=== PATIENT | female | born 1985 | race Caucasian/White ===

== ENCOUNTER → 2024-01-30 14:59 | Outpatient (CLI) | payer OTHER, MEDICAID, SELFPAY ==
--- NOTE | 2024-01-30 | DI.US.S_ITS ---
PROCEDURE: US THYROID INDICATIONS: THYROID NODULE FOLLOW UP TECHNIQUE: Real-time scanning was performed of the thyroid gland, with image documentation. COMPARISON: [facility], CT, CT SINUS [employer] NAVIGATION, 11/26/2023, 11:50. FINDINGS: Thyroid: Right lobe measures 6.5 x 2.2 x 1.6 cm. Left lobe measures 5.4 x 1.9 x 1.3 cm. Isthmus is 0.4 cm thick. Echotexture is homogeneous. Nodule number: 1 Location: Right inferior Size: 2.3 x 1.8 x 1.4 cm. Composition: Solid Echogenicity: Isoechoic Shape: wider than tall. Margins: Smooth Echogenic foci: None Total points: 3 ACR TI-RADS category: TR 3, mildly suspicious 2 additional subcentimeter thyroid nodules are seen. IMPRESSION: Right inferior thyroid nodule measuring 2.3 cm. TR 3, mildly suspicious. Recommend follow-up thyroid ultrasound in 1 year. ACR TI-RADS definitions and recommendations: TI-RADS 1 (benign): 0 points. FNA not needed. TI-RADS 2 (not suspicious): 2 points. FNA not needed. TI-RADS 3 (mildly suspicious): 3 points. * FNA if 2.5 cm or larger, follow up if 1.5 cm or larger (at 1, 3, and 5 years). TI-RADS 4 (moderately suspicious): 4-6 points. * FNA if 1.5 cm or larger, follow up if 1 cm or larger (at 1, 2, 3, and 5 years). TI-RADS 5 (highly suspicious): 7 points or more. * FNA if 1 cm or larger, follow up if 0.5 cm or larger (every year for 5 years). Dictated by: Evaristo Encarnacion M.D. on 02/07/2024 at 14:24 Approved by: Evaristo Encarnacion M.D. on 02/07/2024 at 14:27
== END ==
PROVIDERS: PCP Family Medicine; Referring Provider Family Medicine; Visit Provider Family Medicine
DX: E04.1 Nontoxic single thyroid nodule (principal)
CPT/HCPCS: 76536